=== PATIENT | female | born 1985 | race African-American/Black ===

== ENCOUNTER 2016-11-01 12:06 | Emergency (ER) | payer SELFPAY ==
[~2016-11-01] VITALS: Ht 175.3 cm; Wt 77.0 kg
[2016-11-01 12:10] VITALS: BP 121/85
[2016-11-01] MEDS ORDERED: LIDOCAINE HCL 1% 20ML VIAL (Pyxis) INJ MC ONE (12:30)
[2016-11-01] MEDS ORDERED: TETANUS, DIPHTHERIA, PERTUSSIS VAC/PF 0.5ML (>7YR OLD) IM ONE (12:30)
[2016-11-01] MEDS ORDERED: BACITRACIN ZINC OINT UDPKT TOP ONE (12:30)
== END 2016-11-01 13:14 | disposition home or self-care (01) ==
LOC: ER 12:27
DX: S01.81XA Laceration without foreign body of other part of head, initial encounter (principal); F17.200 Nicotine dependence, unspecified, uncomplicated; Z98.890 Other specified postprocedural states; W20.8XXA Other cause of strike by thrown, projected or falling object, initial encounter; Y93.89 Activity, other specified; Y99.8 Other external cause status; Y92.89 Other specified places as the place of occurrence of the external cause
CPT/HCPCS: 12013; 90471; 90715; 99283; J3490; Z7610

== ENCOUNTER 2016-11-11 11:07 | Emergency (ER) | payer SELFPAY ==
[~2016-11-11] VITALS: Ht 175.3 cm; Wt 77.0 kg
[2016-11-11 11:19] VITALS: BP 112/75
== END 2016-11-11 12:00 | disposition home or self-care (01) ==
LOC: ER 11:48
DX: Z48.02 Encounter for removal of sutures (principal)
CPT/HCPCS: 99281

== ENCOUNTER 2023-01-07 13:30 | Emergency (ER) | payer MEDICAID ==
[~2023-01-07] VITALS: Ht 175.3 cm; Wt 82.0 kg
[2023-01-07 13:49] VITALS: BP 114/73; PULSE 91; RESP 16; TEMP 98.2; O2SAT 98
[2023-01-07] MEDS ORDERED: TOPUD MT (14:48)
== END 2023-01-07 14:59 | disposition home or self-care (01) ==
LOC: ER 13:58
DX: S20.469A Insect bite (nonvenomous) of unspecified back wall of thorax, initial encounter (principal); X58.XXXA Exposure to other specified factors, initial encounter; Y93.89 Activity, other specified; Y92.89 Other specified places as the place of occurrence of the external cause; Y99.8 Other external cause status
CPT/HCPCS: 81025; 99282

== ENCOUNTER 2024-11-24 09:03 | Emergency (ER) | payer MEDICAID ==
[~2024-11-24] VITALS: Ht 175.3 cm; Wt 91.0 kg
[~2024-11-24 09:03] MED LIST: TOPUD MT
[2024-11-24 09:05] VITALS: O2SAT 99
[2024-11-24 09:06] VITALS: TEMP 36.7; O2SAT 98
[2024-11-24] MEDS ORDERED: IBUP-2029 MT (09:49)
[2024-11-24] MEDS ORDERED: CEPH500C2 MT (09:49)
[2024-11-24 10:17] VITALS: BP 159/107; PULSE 90; RESP 16
[2024-11-24] MEDS: IBUPROFEN 600MG TABLET PO ONE (10:17)
== END 2024-11-24 10:21 | disposition home or self-care (01) ==
LOC: ER 09:03
DX: L02.212 Cutaneous abscess of back [any part, except buttock and flank] (principal)
CPT/HCPCS: 99283

== ENCOUNTER 2025-01-10 08:11 | Emergency (ER) | payer MEDICAID, OTHER ==
[~2025-01-10] VITALS: Ht 175.3 cm; Wt 91.0 kg
[~2025-01-10 08:11] MED LIST changes: +CEPH500C2 MT; +IBUP-2029 MT
[2025-01-10 08:23] VITALS: O2SAT 95
[2025-01-10 09:16] LABS: BASOPHILS % 0.8 % (0.0-2.0); EOSINOPHILS % 2.5 % (0.0-5.0); HEMATOCRIT. 38.4 % (36.0-48.0); HEMOGLOBIN. 12.8 g/dL (12.0-16.0); LYMPHOCYTES % 30.9 % (20.0-50.0); MEAN PLATELET VOLUME 7.4 fl (7.4-10.4); MONOCYTES % 7.5 % (2.0-8.0); NEUTROPHILS % 58.3 % (40.0-76.0); PLATELET 386 x1000/uL (130-400); RED BLOOD CELL COUNT 4.47 mill/uL (4.2-5.4); RED CELL DISTRIBUTION WIDTH 13.5 % (11.6-14.6)
[2025-01-10 09:31] LABS: CREATININE 0.9 mg/dL (0.6-1.0)
[2025-01-10 09:32] LABS: UREA NITROGEN BLOOD 10 mg/dL (9-23)
[2025-01-10 09:42] LABS: HCG SCREEN NEGATIVE
[2025-01-10] MEDS: IOHEXOL-300 100 ML BOTTLE ONE (10:40)
[2025-01-10] MEDS ORDERED: IBUP-2028 MT (10:44)
[2025-01-10] MEDS ORDERED: T3 PO (10:44)
[2025-01-10] MEDS ORDERED: CLIN-194 MT (10:44)
[2025-01-10 10:58] VITALS: BP 135/69; PULSE 64; RESP 16; TEMP 37; O2SAT 100
== END 2025-01-10 13:04 | disposition home or self-care (01) ==
LOC: ER 08:11
DX: L08.9 Local infection of the skin and subcutaneous tissue, unspecified (principal); R59.0 Localized enlarged lymph nodes; Z79.899 Other long term (current) drug therapy
CPT/HCPCS: 80048; 84703; 85025; 36415; 71260; 74177; 99285; Q9967; Z7610 ×4